=== PATIENT | female | born 1975 | race Asian ===

== ENCOUNTER 2024-02-20 17:50 | Emergency (ER) | payer BC, SELFPAY ==
[2024-02-20 17:57] VITALS: BP 147/85
[2024-02-20 18:12] LABS: % Basophils 0.2 % (0-2); % Eosinophils 1.6 % (0-6); % Immature Granulocytes 0.2 % (0-0.5); % Lymphocytes 33.8 % (20.5-51.1); % Neutrophils 55.2 % (42.2-75.2); Absolute Eosinophils 0.1 10^3/uL (0-0.7); Absolute Lymphocytes 2.7 10^3/uL (1.2-3.4); Absolute Monocytes 0.7 10^3/uL (0.1-0.6); Absolute Neutrophils 4.5 10^3/uL (1.4-6.5); Hemoglobin 10.7 g/dL (12.0-16.0); Mean Corp Hgb Conc. 34.5 g/dL (33.0-37.0); Mean Corpuscular Volume 78.3 fL (81.0-99.0); Nucleated Red Blood Cells % 0 %; Platelet Count 279 10^3/uL (130-400); Red Blood Cell Count 3.96 10^6/uL (4.20-5.40); Red Cell Dist. Width 11.2 % (11.5-14.5); White Blood Cell Count 8.1 10^3/uL (4.8-10.8)
[2024-02-20 18:30] LABS: ALT (SGPT) 38 U/L (0-35); AST (SGOT) 31 U/L (14-36); Albumin 3.8 g/dl (3.5-5.0); Alkaline Phosphatase 85 U/L (38-126); Blood Urea Nitrogen 15 mg/dl (7-17); Calcium 9.3 mg/dl (8.4-10.2); Carbon Dioxide 22 mmol/L (22-30); Chloride 107 mmol/L (98-107); Glucose 123 mg/dl (70-99); Potassium 4.2 mmol/L (3.5-5.1); Sodium 137 mmol/L (135-145); Total Bilirubin 0.5 mg/dl (0.2-1.3); Total Protein 6.8 g/dl (6.3-8.2); eGFR > 60.00
[2024-02-20 18:33] LABS: COVID-19 Antigen Negative (Negative)
[2024-02-20 18:52] VITALS: BMI 29.3
[2024-02-20 18:55] VITALS: BP 137/65
[2024-02-20 19:00] VITALS: BP 134/74
--- NOTE | 2024-02-20 19:57 | ED.GENMED ---
Addendum entered and electronically signed by Shyam Perez PA-C 02/24/24 07:26:
Urine culture shows greater than 100,000 colony-forming units of E. coli. Spoke with patient regarding this result. Sent prescription for Keflex sent to her pharmacy
Original Note:
History of Present Illness
General
Chief Complaint: Fever
Source: patient
Exam Limitations: none
Time Seen by Provider: 02/20/24 19:24
History of Present Illness
History of Present Illness:
This is a 48 year old female that comes in with c/o body aches and SOB. States that she started 2 weeks ago with a fever and body aches. States that she felt dizzy. Patient went to see the PCP last week and was told that she had an ear infection and
given Amoxicillin. States that she has 2 tablets left. States that she thought she started to feel better but then the body pain started to come back and she is SOB when going up the stairs and has to sit down for 5 min to catch her breath. States
that her nose is also stuffy and that today she had diarrhea 3 times. States that she has a headache across her forehead and is lightheaded. Denies any fever, chills, chest pain, Cough, abd pain, nausea, vomiting, urinary burning
Past History
Past History
ED Past Medical History: Arrthythmia, Asthma, GERD, Hypercholesterolemia, Hyperthyroidism and Other (Bartholin cyst, Uterine Fibroids, Iron Def anemia, )
ED Past Surgical History: (X 2)
Social History
Tobacco: Non-smoker
Alcohol: None
Drug: None
Personal:
Living: with family
Family History
Family History: CAD (Mother in 60s, father in his 70s)
Review of Systems
Review of Systems
All Other Systems: ROS reviewed and negative except as documented in HPI and ROS
Constitutional: Reports no symptoms; Denies fever or chills
EENT: Reports no symptoms
Respiratory: Reports trouble breathing; Denies cough
Cardiac: Reports no symptoms; Denies chest pain
ABD/GI: Reports diarrhea; Denies abdominal pain, nausea or vomiting
: Reports no symptoms; Denies dysuria, frequency or urgency
Musculoskeletal: Reports other (Body aches)
Skin: Reports no symptoms
Neurological: Reports headache and other (lightheaded); Denies dizzy
Psychiatric: Reports no symptoms
Phy Exam
General Physical Exam
General Presentation: no apparent distress
General age: appears stated age
General Skin: warm and dry
General Habitus: normal
General Mental: alert
General Hydration: appears well hydrated
ENT Exam
ENT Exam: TM's normal, pharynx normal and neck supple
Eye Exam
Eye Exam: EOMI
Cardiovascular Exam
Cardiovascular Exam: regular rate/rhythm, no edema, no murmur and normal peripheral pulses
Pulmonary Exam
Pulmonary Exam: no respiratory distress, no rales, chest non tender, no crackles, no rhonchi, no wheezing, no cough and decreased breath sounds (at bases)
Gastrointestinal Exam
Gastrointestinal Exam: normal bowel sounds, soft, no organomegaly, no pulsatile mass, non distended and tender (left sided tenderness with palpation)
Musculoskeletal Exam
Musculoskeletal Exam: full ROM and no edema
Skin Exam
Skin Exam: normal color, warm/dry, no rash and no petechia
Psychiatric Exam
Psychiatric Exam: normal mood/affect
Course
Orders/Labs/Results
Orders:
Orders
02/20/24 18:03
COVID-19 Antigen Urgent
Source: Nasal Swab
Complete Blood Count/With Diff Urgent
Comprehensive Metabolic Panel Urgent
Influenza A+B Rapid Molecular Urgent
ERIKA Source: Nasal Swab
Specimen Description:
02/20/24 19:55
0.9% Sodium Chloride 1000 ml [Nss] 1,000 ml IV BOLUS
02/20/24 19:56
CT Abd/pelvis W Iv Cont Urgent
Comment:
Reason For Exam: left sided abd pain
CR Chest - 2 Views Urgent
Comment:
Reason For Exam: fever, SOB
02/20/24 20:11
D-Dimer Urgent
Lactic Acid Urgent
Lyme Progressive Urgent
Blood Culture Urgent
ERIKA Source: Blood/Venous
Specimen Description:
02/20/24 21:05
Urinalysis Reflex To Culture Urgent
Date Specimen was Collected: 02/20/24
Time Specimen was Collected: 21:03
Urine Microscopic Reflex Cult Urgent
Urine Culture Urgent
ERIKA Source: U
Specimen Description:
Date Specimen was Collected: 02/20/24
Time Specimen was Collected: 21:03
Abnormal Lab Results
02/20/24 02/20/24
18:03 21:05
RBC 3.96 L 10^6/uL
(4.20-5.40)
Hgb 10.7 L g/dL
(12.0-16.0)
Hct 31.0 L %
(37.0-47.0)
MCV 78.3 L fL
(81.0-99.0)
RDW 11.2 L %
(11.5-14.5)
Absolute Monos (auto) 0.7 H 10^3/uL
(0.1-0.6)
Creatinine 0.4 L mg/dL
(0.6-1.0)
Glucose 123 H mg/dl
(70-99)
ALT 38 H U/L
(0-35)
Leukocyte Esterase Rfl 1+ A
(Negative)
Urine WBC (Reflex) 21-25 A /HPF
(0-5)
Urine Bacteria (Reflex) Few A
(Negative)
02/20/24 18:03
02/20/24 18:03
H/H low, anemia, Glucose nonfasting. ALT very slightly elevated. COVID and Influenza negative. D-dimer <0.27,
Vital Signs
Initial and Last Documented VS:
Initial Vital Signs
Temp Pulse Resp BP Pulse Ox
97.9 F 83 17 147/85 98
02/20/24 17:57 02/20/24 17:57 02/20/24 17:57 02/20/24 17:57 02/20/24 17:57
Last Documented Vital Signs
Temp Pulse Resp BP Pulse Ox
98.3 F 89 18 138/57 98
02/20/24 18:56 02/20/24 20:15 02/20/24 20:18 02/20/24 20:00 02/20/24 20:15
MDM/Problems Addressed
Differential Diagnosis Includes:
Viral syndrome. Lyme disease, PNA, UTI
MDM/Problems Addressed:
This is a 48 year old female that comes in with c/o body aches and SOB. States that she started with a fever and body aches 2 weeks ago. States that she went to the PCP last week and was told that she had an ear infection and given Amoxicillin.
States that she started to feel better and then her body aches came back and she is SOB.
Will check labs. Chest x-ray, CT abd. give IF fluids
Back into see patient. Reviewed CT and chest x-ray. Explained that her D-dimer is negative and she is negative for COVID and Influenza. Explained to patient that a lyme titer was also sent but this will not come back tonight. If this would come back
positive she would be called. Explained to patient that she may have had COVID 2 weeks ago and that the SOB is just lingering from this. Patient to increase her water intake to 8-8oz glasses daily. Tylenol or Ibuprofen for body aches. Follow up with
the family doctor. return with any concerns .
Chronic conditions affecting care:
NA
Acute Exacerbation and/or Progression of Chronic Illness:
NA
*Radiology
Radiology exam reviewed: preliminary read by ED provider (Chest- negative for active disease) and radiology read reviewed (CT-No acute inflammatory process within the abdomen or pelvis. Minor diverticulosis without acute diverticulitis. No bowel
obstruction. No obstructive uropathy. The appendix is normal. Enlarged, fibroid uterus. Chest- NO acute cardioplumonary process. )
*Pulse Oximetry
Patient hypoxic: no
*EKG
Interpreted by ED Provider?: NA
Rate: EKG- N/A
*Piano Case Maker Interpretation
Rate: normal
Heart Rate: 81
Rhythm: sinus
*Critical Care Note
Total Time (30-74mins, 75-104mins- exclusive of procedures): Not Applicable
ED Attending Note
-
Portions of this chart may have been created with voice recognition software.� Occasional wrong word or��sound alike� substitutions may have occurred due to the inherent limitations of voice recognition software.
Discharge Plan
Departure
Patient Disposition: Home (Routine Discharge)
Date of Disposition: 02/20/24
Time of Disposition: 22:40
Patient with high blood pressure during this ER visit?: Yes
Condition: Good
Covid-19: Negative COVID-19
Discharge Problem:
Generalized body aches, Shortness of breath, Viral syndrome
Instructions: Viral Syndrome (DC), Shortness of Breath, Adult ED, BLOOD PRESSURE
Prescriptions:
No Action
multivitamin 1 EACH tablet
1 ea PO DAILY
albuterol sulfate 1 PUFF HFA aerosol inhaler
2 puff inhalation R [id number] PRN (Reason: sob)
Referrals:
Ashleigh Dejesus, [Family Provider] - Follow up in 2-3 days
Activity Restrictions/Additional Instructions:
As discussed, your blood work shows that you are a little anemic. You are negative for COVID and Influenza. Your chest x-ray is normal along with your CT of the abd/pelvis. Please increase your water intake to 8-8oz glasses daily. Please use Tylenol
or Ibuprofen for body aches. Follow up with the family doctor. Since this started 2 weeks ago, you may have had COVID then and the SOB is residual from this. Your chest x-ray is normal and your D-dimer which is a marker for pulmonary embolism is
negative. A lyme titer was sent and if this would come back positive you will be called. IF YOU HAVE ANY OTHER CONCERNS PLEASE RETURN TO THE EMERGENCY ROOM .
Interventions
Interventions:
*Risk Screen - Suicide Last Done: 02/20/24 17:58
*General Assessment Last Done: 02/20/24 17:58
*Neglect/Abuse Screening Last Done: 02/20/24 17:58
ED- Fall Risk Assessment Last Done: 02/20/24 18:58
*ED COVID-19 Vaccine History Last Done: 02/20/24 18:52
ED- Neurological Assessment Last Done: 02/20/24 18:58
ED-Skin Assessment Last Done: 02/20/24 18:58
Discharge Date and Time
Print Language: JAPANESE
[2024-02-20 20:00] VITALS: BP 138/57
[2024-02-20] MEDS: NSS 1000 IV (20:13)
[2024-02-20 20:59] LABS: D-Dimer < 0.27 ug/mlFEU (0.00-0.50)
[2024-02-20 21:15] LABS: Urine Albumin Negative (Neg - Trace); Urine Bilirubin Negative (Negative); Urine Character Clear (Clear); Urine Color Yellow; Urine Glucose Negative (Negative); Urine Ketone Negative (Negative); Urine Leukocyte 1+ (Negative); Urine Nitrite Negative (Negative); Urine Occult Blood Negative (Negative); Urine Urobilinogen Negative (Neg - 1+); Urine pH 6.5 (5.0-9.0)
[2024-02-20 21:41] LABS: Urine Bacteria Few (Negative); Urine White Cell 21-25 /HPF (0-5)
[2024-02-20 23:08] VITALS: BP 139/75
[2024-02-23 14:56] LABS: Lyme Antibody Screen, EIA Negative (Negative)
== END 2024-02-20 23:09 | disposition home or self-care (01) ==
LOC: EMR 17:50
PROVIDERS: Clinical Nurse Specialist Family Health; Emergency Medicine; EMERGENCY PHYSICIAN Emergency Medicine; FAMILY PHYSICIAN Family Medicine
DX: B34.9 Viral infection, unspecified (principal); R06.02 Shortness of breath; R42 Dizziness and giddiness; R51.9 Headache, unspecified; R19.7 Diarrhea, unspecified; N39.0 Urinary tract infection, site not specified; R52 Pain, unspecified; Z11.52 Encounter for screening for COVID-19; R03.0 Elevated blood-pressure reading, without diagnosis of hypertension; D64.9 Anemia, unspecified; D25.9 Leiomyoma of uterus, unspecified; E78.00 Pure hypercholesterolemia, unspecified; K21.9 Gastro-esophageal reflux disease without esophagitis; E05.90 Thyrotoxicosis, unspecified without thyrotoxic crisis or storm; Z88.1 Allergy status to other antibiotic agents; Z91.048 Other nonmedicinal substance allergy status; J45.909 Unspecified asthma, uncomplicated
CPT/HCPCS: 99285; 96360; 71046; 74177; 80053; 81003; 81015; 83605; 85025; 85379; 86618; 87040; 87071; 87086; 87186; 87502; 87811; Q9967

== ENCOUNTER → 2024-04-29 14:55 | Outpatient (REF) | payer BC, SELFPAY | LOC: HWRAD 14:55 | PROVIDERS: ATTENDING PHYSICIAN Nurse Practitioner Family; FAMILY PHYSICIAN Family Medicine | DX: E05.00 Thyrotoxicosis with diffuse goiter without thyrotoxic crisis or storm (principal) | CPT/HCPCS: 76536 ==

== ENCOUNTER → 2024-05-21 14:46 | Outpatient (REF) | payer BC, SELFPAY | LOC: HWWDC 14:46 | PROVIDERS: ATTENDING PHYSICIAN Family Medicine | DX: Z12.31 Encounter for screening mammogram for malignant neoplasm of breast (principal) | CPT/HCPCS: 77063; 77067 ==